=== PATIENT | female | born 1955 | race Caucasian/White ===

== ENCOUNTER 2019-04-30 12:24 | Emergency (ER) | payer BC ==
[~2019-04-30] VITALS: Ht 162.6 cm; Wt 55.3 kg
[2019-04-30 12:34] VITALS: BP_SYST 158
--- NOTE | 2019-04-30 12:34 | NUR ---
Patient triaged and placed in waiting room. VSS and patient appears in no acute distress at this time. Accompanied by SELF, awaiting available bed, and MD notified of need for MSE.
[2019-04-30 14:12] LABS: BASOPHILS % (AUTO) 0.3 % (0.0-2.0); EOSINOPHILS % (AUTO) 0.1 % (0.0-4.0); HEMOGLOBIN 13.9 g/dL (12.0-16.0); LYMPHOCYTES # (AUTO) 1.5 K/uL (1.0-5.5); LYMPHOCYTES % (AUTO) 18.5 % (20.5-51.5); MEAN CORPUSCULAR HEMOGLOBIN 30 pg (27-31); MEAN CORPUSCULAR HGB CONC 34 % (32-36); MEAN CORPUSCULAR VOLUME 89 fL (79.0-98.0); MONOCYTES # (AUTO) 0.4 K/uL (0.0-1.0); MONOCYTES % (AUTO) 5.5 % (1.7-9.3); NEUTROPHILS % (AUTO) 75.6 % (40.0-70.0); PLATELET COUNT (AUTO) 418 K/uL (130-430); RED BLOOD CELL COUNT(AUTO) 4.62 MIL/uL (4.2-6.2)
[2019-04-30 14:18] LABS: CALCIUM 10.1 mg/dL (8.4-11.0); CREATININE 0.73 mg/dL (0.55-1.30); POTASSIUM 3.4 mmol/L (3.5-5.1)
[2019-04-30 14:21] LABS: PROTHROMBIN TIME 9.8 SECS (9.5-12.5)
[2019-04-30 14:22] LABS: ALBUMIN 4.3 g/dL (3.4-4.8); TOTAL BILIRUBIN 0.4 mg/dL (0.0-1.0)
--- NOTE | 2019-04-30 15:11 | NUR ---
BROUGHT BACK TO BED #7 AND REPORT GIVEN TO SHOBHA
--- NOTE | 2019-04-30 15:17 | NUR ---
DR COON AT BEDSIDE FOR EVALUATION
--- NOTE | 2019-04-30 16:15 | NUR ---
PATIENT CAME IN COMPLAINING OF ABD PAIN FOR ABOUT A MONTH. PATIENT COMPLAINING OF PAIN 3/10. PATIENT NOT COMPLAINING OF NAUSEA, VOMITING, DIAHRREA OR CONSTIPATION. PATIENT STATES SHE LOST 5 POUNDS IN LAST 2 WEEKS. PATIENT NOT COMPLAINING OF SOB. PATIENT IS ALERT AND ORIENTED X4.
--- NOTE | 2019-04-30 16:41 | NUR ---
DR COON AT BEDSIDE FOR RE-EVALUATION
[2019-04-30 17:23] VITALS: BP_SYST 160
--- NOTE | 2019-04-30 17:23 | NUR ---
Patient given written and verbal discharge instructions and verbalizes understanding. ER MD discussed with patient the results and treatment provided. Patient in stable condition. ID arm band removed. Rx of OMEPRAZOLE, MEDROL, AND ZOFRAN given. Patient educated on pain management and to follow up with PMD. Pain Scale 0/10. Opportunity for questions provided and answered. Medication side effect fact sheet provided.
== END 2019-04-30 17:23 | disposition home or self-care (01) ==
LOC: SED 12:24
DX: R10.84 Generalized abdominal pain (principal); Z88.2 Allergy status to sulfonamides; Z88.8 Allergy status to other drugs, medicaments and biological substances
CPT/HCPCS: 36415; 80053; 81002; 82150-TC; 83605; 83690-TC; 85025; 85610-TC; 85730-TC; 99284